=== PATIENT | female | born 1970 | race Caucasian/White ===

== ENCOUNTER 2019-06-16 11:54 | Observation (INO) | payer BC, SELFPAY ==
[2019-06-16] VITALS (12 sets, daily range): BP systolic 106–134; BP diastolic 53–78; PULSE 37–74; RESP 10–18; TEMP 36.5–36.9; O2SAT 96–100; BMI 35.9; BMI 34.8
--- NOTE | 2019-06-16 12:01 | RAD_ITS ---
STUDY: X-RAY CHEST REASON FOR EXAM: Female, 48 years old. Chest pain TECHNIQUE: AP COMPARISON: None. FINDINGS: EKG leads project over the chest. Oval shaped nodule projects just above the left hilum. There is no demonstrated pleural abnormality. Normal size heart. Normal mediastinum and debby. Normal visualized pulmonary arteries. Normal visualized aortic arch and descending thoracic aorta. No acute bony process. There is no demonstrated abnormality of the visualized soft tissue structures of the upper abdomen. RAD/Chest 1 View (Portable) IMPRESSION: No acute cardiopulmonary process. 1.5 cm left suprahilar nodular density could represent a nodule vs. vessel on end. Chest PA and lateral xray or chest CT suggested. Electronically Signed: Cade Almaguer MD (Brooks) at 12:41 EDT , Service support ,
--- NOTE | 2019-06-16 12:01 | EKG12_ITS ---
Test Reason : SYNCOPE Blood Pressure : / mmHG Vent. Rate : 038 BPM Atrial Rate : 038 BPM P-R Int : 148 ms QRS Dur : 084 ms QT Int : 472 ms P-R-T Axes : 043 052 066 degrees QTc Int : 375 ms Marked sinus bradycardia Abnormal ECG Confirmed by RAFAL NICOLE, JACKSON ([id number]), health editor ELAINE HSU ([id number] on 06/19/2019 8:37:47 AM Referred By: OSCAR Confirmed By:JACKSON LYLES MD
--- NOTE | 2019-06-16 12:16 | ED.DCSUM_ITS ---
- ER Visit Summary Date of Service: 06/16/19 Chief Complaint: Passed out History of Present Illness: The patient is a 48 F history of prior vasovagal syncope. Migraine headaches and myopathy on Topamax and recently started on Antivert. Patient's passed out now 3 times in the last 2 to 3 weeks. Was seen in [facility] ER a week or 2 ago. They went to admit her at that time but she signed out AGAINST MEDICAL ADVICE. She denies recently being ill. She has no known cardiac disease. Is on no rhythm or blood pressure medications reportedly. Today was seated in taoism by her son. [place] lightheaded and your heart rate was low and passed out for reportedly 2 to 3 minutes or longer. She was seated at the time. Denies any injuries. She denies any vomiting or diarrhea. No melena. No fever. No chest pain. He was brought in by squad. She was given aspirin per the squad. Physical Examination: Middle-aged female. Currently blood pressure 134/66 with a heart rate of 37. Her pulse ox 100% on room air. HEENT exam unremarkable. Pupils are unreactive light. No signs of trauma to her face or head. C-spine nontender. Trachea midline. No thyromegaly. No lymphadenopathy. Lungs clear to auscultation bilaterally. Heart regular rhythm rate about 37-second sinus bradycardia. No murmur appreciated. Chest wall nontender. Abdomen soft nontender. Normal bowel sounds no peritoneal signs. Remedies moves all 4. No edema. Nontender. Normal range of motion. Normal environmental maintenance worker strength and dorsi and plantar flexion. Skin unremarkable. Neurologically she is awake and alert with no focal motor deficits. Test Results: EKG shows a sinus bradycardia rate of 37 with no obvious signs of any type of block. No DE or ischemia. Portable single view chest x-ray shows no acute abnormality. Normal cardiac silhouette. No acute benign. No CHF. No effusions. Lung young are unremarkable. CBC normal white count 8. Hemoglobin 13. Electrolytes normal normal creatinine and gap. Normal potassium. Troponin normal. TSH is pending. Emergency Department Course and Treatment: Patient remained on surveillance system monitor. We have atropine at bedside but currently is not needed due to her stable blood pressure. She will undergo cardiac work-up. Most likely will need to be admitted here or another facility for further cardiac evaluation. Treatment Plan: Repeat exam the patient is doing well. Her heart rates in the high 30s but her pressure is 130s over 60s and 70s. I spoke to the railway signal electrician internal controls consultant today and he is comfortable with her being admitted here. I will speak to the hospitalist about the admission to the telemetry unit. Disposition: admission Impression: Acute sinus bradycardia heart rate in the 30s. Acute syncope suspect secondary to sinus bradycardia This note was generated with [employer] dictation software. It may contain incorrect words, spelling, and punctuation that were not noted in review of the chart prior to signing ED Disposition - Plan for ED Patient: Referrals: [facility] Doctor,Out of [Primary Care Provider] -
[2019-06-16 12:22] LABS: Absolute Lymphocyte Count 2.54 X10^3/uL (0.83-4.51); Absolute Neutrophil Count 4.7 X10^3/uL (2.0-7.7); Basophil# 0.07 X10^3/uL; Basophil% 0.9 % (0-1); Eosinophil# 0.17 X10^3/uL; Eosinophils% 2.1 % (0-5); Hematocrit 42.2 % (37-47); Hemoglobin 13.9 g/dL (12.0-15.0); Lymphocyte # 2.54 X10^3/ul (4.0); Lymphocyte % 31.9 % (19-41); Mean Corp Hgb Conc 32.9 g/dL (32-36); Mean Corpuscular Hgb 30.2 pg (27.0-32.0); Mean Corpuscular Volume 91.7 fL (81-99); Mean Platelet Vol. 8.9 fl (6.2-12.0); Monocyte# 0.48 X10^3/uL; NRBC Flagged by Analyzer 0 % (0-5); Neutrophil # 4.65 X10^3/uL (2.7-7.7); Neutrophil % 58.6 % (47-70); Platelet Count 258 K/mm3 (150-450); RBC Distribution Width CV 13.1 % (11.6-14.6); RBC Distribution Width SD 44.4 fl (35.1-43.9)
[2019-06-16 12:30] LABS: Anion Gap 7 (5-15); BUN 14 mg/dL (7-18); BUN/Creat Ratio 16.5 RATIO (10-20); Calcium,Total 8.7 mg/dL (8.5-10.1); Chloride 111 mmol/L (98-107); Creatinine, Serum 0.85 mg/dL (0.55-1.02); EST Glomerular Filtration Rate 76 mL/min (>60); Est Glom Filt Rate - Afr Amer 92 mL/min (>60); Estimated Creatinine Clearance 67.68 ml/min; Glucose 92 mg/dL (74-106); Potassium 3.8 mmol/L (3.5-5.1); Sodium Level 142 mmol/L (136-145)
[2019-06-16] MEDS: 0.9% Normal Saline 1,000 ML 999 ML IV (12:44)
[2019-06-16 12:50] LABS: Thyroid Stim Hormone (TSH) 1.56 uIU/mL (0.358-3.74)
--- NOTE | 2019-06-16 12:50 | HP.PCM_ITS ---
Problem List (1) Syncope Status: Acute (2) Bradycardia Status: Acute (3) Chronic pain Status: Chronic (4) Migraine Status: Chronic (5) BMI 36.0-36.9,adult Status: Chronic History of Present Illness Date of Admission: 06/16/19 Chief Complaint: PASSED OUT The patient is a 48 year old F with past medical history single for chronic pain syndrome, chronic migraine who was brought to the emergency department after passing out was a change. Patient did complain of feeling lightheaded prior to passing out. She report having passed out a couple of times over the past couple of months. In the emergency department patient was found to be bradycardic with heart rates in the high 30s. She however did not have any blocks. The energy broker metal control coordinator was notified who recommended for patient to be admitted to a monitored bed for subsequent management. Past Medical History Past Medical History (Chronic Problems): Chronic Problems Chronic pain (Chronic) Migraine (Chronic) BMI 36.0-36.9,adult (Chronic) Allergies No Known Allergies Allergy (Verified 06/16/19 12:16) Home Medications: Ambulatory Orders Medication Instructions Recorded Hydrocodone/Acetaminophen 1 tab PO TID PRN 06/16/19 [Hydrocodone-Acetamin 5-325 mg] Topiramate 25 mg PO TID 06/16/19 Smoking Status: Former smoker - *Family History Maternal History Items: Heart Disease - Review of Systems Constitutional: Denies: Anorexia, Chills, Fever, Night Sweats, Weight Change HEENT: Denies: Head Aches, Sinus Congestion, Sinus Drainage Cardiovascular: Reports: Light Headedness, Syncope. Denies: Chest Pain, Orthopnea, Palpitations, Paroxysmal Noc. Dyspnea Respiratory: Denies: Cough, Shortness of breath at rest, Shortness of breath upon exertion, Sputum production Gastrointestinal: Denies: Abdominal Pain, Hematemesis, Hematochezia, Nausea, Melena, Vomiting Genitourinary: Denies: Dysuria, Frequency, Hematuria, Urgency Musculoskeletal: Denies: Joint Pain, Joint Tenderness Skin: Denies: Rash Neurological: Denies: Focal weakness, Numbness, Tingling Psychiatric: Denies: Homicidal Ideations, Suicidal Ideations Hematologic/ Lymphatic: Denies: Easy Bruising, Easy Bleeding VTE Information - Inpt Only VTE Present on Admission: No VTE Mechan Device Prophylaxis: None VTE Pharm Prophylaxis ordered?: Yes Patient Problems: Active and Suspected Problems Syncope (Acute) Bradycardia (Acute) Objective: GENERAL: cooperative HEENT: Atraumatic; moist oral mucosa EYES; Anicteric, Normal Conjunctiva NECK; supple, normal thyroid, RESPIRATORY: Diminished to auscultation CARDIOVASCULAR: Regular S1 S2, Bradycardic GI: soft, non-tender, normoactive bowel sounds, : No Renal angle tenderness; EXTREMITIES: No edema, no clubbing, no cyanosis. MUSCULOSKELETAL: No Joint Tenderness; NEURO: Awake; no lateralizing signs. SKIN: No Rash PSYCH; Normal affect - Physical Exam Vital Signs Temp Pulse Resp BP Pulse Ox 98.1 F 37 L 18 134/66 H 100 06/16/19 11:55 06/16/19 12:09 06/16/19 12:09 06/16/19 11:55 06/16/19 12:09 Oxygen Flow Rate (L/min) 2 Oxygen Delivery Method Nasal Cannula Weight: 92.1 kg Body Mass Index (BMI) 35.9 Laboratory Tests Past 24 Hrs 06/16/19 06/16/19 06/16/19 12:05 12:05 12:05 WBC 8.0 RBC 4.60 Hgb 13.9 Hct 42.2 MCV 91.7 MCH 30.2 MCHC 32.9 RDW Std Deviation 44.4 H RDW Coeff of Freya 13.1 Plt Count 258 MPV 8.9 Immature Gran % (Auto) 0.500 Neut % (Auto) 58.6 Lymph % (Auto) 31.9 [place] % (Auto) 6.0 Eos % (Auto) 2.1 Baso % (Auto) 0.9 Absolute Neuts (auto) 4.7 Absolute Lymphs (auto) 2.54 Nucleated RBC % 0 Sodium 142 Potassium 3.8 Chloride 111 H Carbon Dioxide 24.0 Anion Gap 7 BUN 14 Creatinine 0.85 Estim Creat Clear Calc 67.68 Est GFR (MDRD) Af Amer 92 Est GFR (MDRD) Non-Af 76 BUN/Creatinine Ratio 16.5 Glucose 92 Calcium 8.7 Troponin I < 0.015 TSH 1.56 Assessment/Plan All Active Problems Syncope (Acute) Bradycardia (Acute) Patient is a 48-year-old lady admitted following a single change. 1. Syncope ~secondary to symptomatic severe sinus bradycardia. Patient has been admitted to a monitored bed for subsequent monitoring. As part of her management ordered serial cardiac enzymes TSH and 2D echo the energy broker on-call Dr. Szymanski was informed prior to patient being admitted consult placed to him 2. Severe sinus bradycardia ~management as discussed above 3. Chronic pain syndrome ~patient is followed by pain management she is on hydrocodone at home 4. Chronic migraine ~currently not having an acute migrainous attack patient is on Toprol we did continue 5. Obesity with BMI of 36 ~weight loss advised 6. DVT prophylaxis ~ on enoxaparin Code Visit OBSV E&M: [id number] Initial observation care L3
[2019-06-16] MEDS: Topiramate 25 MG Tablet PO ×2 (14:59→21:14)
--- NOTE | 2019-06-16 16:56 | PCM.CONS.C ---
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 Patient did complain of feeling lightheaded prior to passing out. Patient states that she had finished singing and she went to sit down and shortly after that she passed out. She report having passed out a couple of times over the past couple of months. In the emergency department patient was found to be bradycardic with heart rates in the high 30s. She however did not have any blocks. States that sometimes when she gets up from a sitting or lying position she feels lightheaded. There have been times when she just could not sit up and had to lie down because of the lightheadedness. There have been other times when she has been standing for a long time and then she felt very lightheaded at work. Patient states that she had an echocardiogram done recently that revealed a PFO. She was supposed to get a stress test and an event monitor. Due to the PFO and dizziness she was also supposed to get an MRI to see if she has had strokes in the posterior circulation. Review of systems: All systems reviewed. All else is negative except that in the HPI. [] Past Medical History Allergies/Adverse Reactions: Allergies No Known Allergies Allergy (Verified 06/16/19 12:16) Home Medications: Ambulatory Orders Medication Instructions Recorded Aspirin 325 mg PO DAILY@0800 06/16/19 Hydrocodone/Acetaminophen 1 tab PO TID PRN 06/16/19 [Hydrocodone-Acetamin 5-325 mg] Meclizine HCl [Antivert] 25 mg PO TID PRN PRN 06/16/19 Topiramate 25 mg PO TID 06/16/19 Past Medical History (Chronic Problems): Chronic Problems Chronic pain (Chronic) Migraine (Chronic) BMI 36.0-36.9,adult (Chronic) - *Family History Maternal History Items: Heart Disease - Smoking Status: Former smoker Objective: Vital Signs Temp Pulse Resp BP Pulse Ox 97.7 F L 43 L 16 131/67 H 96 06/16/19 13:33 06/16/19 14:45 06/16/19 13:33 06/16/19 13:33 06/16/19 16:47 Oxygen Flow Rate (L/min) 2 Oxygen Delivery Method Room Air Weight: 196 lb 6.91 oz Body Mass Index (BMI) 34.8 Intake and Output for Last 24 Hours 06/14/19 06/15/19 06/16/19 23:59 23:59 23:59 Intake Total 1000 / 1000 Balance 1000 / 1000 General: Awake, Alert, Oriented x 3 HEENT: PERRL, EOMI, Sclera Non Icteric Neck: Supple, Good ROM, No Lymph Node Enlargement Lungs: Clear to auscultation Cardiovascular: Regular Rhythm, Normal S1, Normal S2, No Murmurs, No Rubs, No Gallops Abdomen: Soft Extremities: No edema Skin: No Rashes Psych/Mental Status: Appropriate 06/16/19 12:05: WBC 8.0, RBC 4.60, Hgb 13.9, Hct 42.2, MCV 91.7, MCH 30.2, MCHC 32.9, Plt Count 258, MPV 8.9, Immature Gran % (Auto) 0.500, Neut % (Auto) 58.6, Lymph % (Auto) 31.9, [place] % (Auto) 6.0, Eos % (Auto) 2.1, Baso % (Auto) 0.9, Absolute Neuts (auto) 4.7, Nucleated RBC % 0 06/16/19 12:05: Sodium 142, Potassium 3.8, Chloride 111 H, Carbon Dioxide 24.0, Anion Gap 7, BUN 14, Creatinine 0.85, Est GFR (MDRD) Af Amer 92, Est GFR (MDRD) Non-Af 76, BUN/Creatinine Ratio 16.5, Glucose 92, Calcium 8.7, Troponin I < 0.015 06/16/19 15:33: Troponin I < 0.015 Rhythm: EKG: ECHO: Stress Test: Cardiac Cath: PCI: CT Surgery: Holter monitor: EPS: PPM: CXR: Chest CT Scan: Assessment/Plan 1. Syncope: This appears to be vasovagal. By history she could have an orthostatic component to it as well. Advised patient to stay well hydrated. Please check for orthostatic drop in blood pressure. Due to her significant sinus bradycardia we will try walking her on a treadmill to see if her heart rate goes up with exercise to rule out chronotropic incompetence. We should also try to get records of outside echocardiogram. Consider neurology consult or MRI as this was also being considered anyway as an outpatient according to the patient. We could also consider fludrocortisone or Midodrine if required.
[2019-06-16] MEDS: oxyCODONE 5 MG Tablet PO (19:41)
[2019-06-17] VITALS (10 sets, daily range): BP systolic 99–132; BP diastolic 48–82; PULSE 42–69; RESP 14–16; TEMP 36.6–36.9; O2SAT 95–97
[2019-06-17] MEDS: Topiramate 25 MG Tablet PO ×3 (05:01→21:32)
--- NOTE | 2019-06-17 05:55 | EKG12_ITS ---
Test Reason : AM EKG Blood Pressure : / mmHG Vent. Rate : 039 BPM Atrial Rate : 039 BPM P-R Int : 162 ms QRS Dur : 090 ms QT Int : 478 ms P-R-T Axes : 037 030 042 degrees QTc Int : 384 ms Marked sinus bradycardia Low voltage QRS Abnormal ECG When compared with ECG of 16-JUN-2019 12:06, MANUAL COMPARISON REQUIRED, DATA IS UNCONFIRMED Confirmed by ELIE PARKS ([id number]), photography editor ELAINE HSU ([id number]) on 06/19/2019 10:48:11 AM Referred By: YUE Confirmed By:ELIE PARKS
[2019-06-17 06:20] LABS: Absolute Lymphocyte Count 3.18 X10^3/uL (0.83-4.51); Absolute Neutrophil Count 3.2 X10^3/uL (2.0-7.7); Basophil# 0.08 X10^3/uL; Basophil% 1.1 % (0-1); Eosinophil# 0.25 X10^3/uL; Eosinophils% 3.5 % (0-5); Hematocrit 43.4 % (37-47); Hemoglobin 14.2 g/dL (12.0-15.0); Lymphocyte # 3.18 X10^3/ul (4.0); Mean Corp Hgb Conc 32.7 g/dL (32-36); Mean Corpuscular Hgb 29.8 pg (27.0-32.0); Mean Platelet Vol. 9.2 fl (6.2-12.0); Monocyte# 0.53 X10^3/uL; Monocyte% 7.3 % (0-10); NRBC Flagged by Analyzer 0 % (0-5); Neutrophil # 3.17 X10^3/uL (2.7-7.7); Neutrophil % 43.8 % (47-70); Platelet Count 288 K/mm3 (150-450); RBC Distribution Width CV 13.4 % (11.6-14.6); RBC Distribution Width SD 45.3 fl (35.1-43.9); Red Blood Count 4.77 M/mm3 (4.2-5.4); White Blood Count 7.2 K/mm3 (4.4-11.0)
[2019-06-17 06:39] LABS: Anion Gap 8 (5-15); BUN 15 mg/dL (7-18); BUN/Creat Ratio 18.8 RATIO (10-20); Calcium,Total 8.7 mg/dL (8.5-10.1); Chloride 113 mmol/L (98-107); EST Glomerular Filtration Rate 82 mL/min (>60); Est Glom Filt Rate - Afr Amer 99 mL/min (>60); Estimated Creatinine Clearance 68.76 ml/min; Glucose 89 mg/dL (74-106); Magnesium 2.3 mg/dL (1.6-2.6); Sodium Level 143 mmol/L (136-145)
[2019-06-17] MEDS: Acetaminophen 325 MG Tablet 650 MG PO (09:17)
[2019-06-17] MEDS: oxyCODONE 5 MG Tablet PO (13:32)
--- NOTE | 2019-06-17 16:35 | PN_ITS ---
Patient Problems: Active and Suspected Problems Syncope (Acute) Bradycardia (Acute) Subjective: Had a vagal episode while on the treadmill for the stress test and did become bradycardic. Was caught before she actually was able to collide with anything. Currently just feels tired. Vitals/I&O's: Vital Signs Temp Pulse Resp BP Pulse Ox 36.7 C 47 L 16 112/55 L 97 06/17/19 13:25 06/17/19 14:57 06/17/19 13:25 06/17/19 13:25 06/17/19 13:25 Oxygen Flow Rate (L/min) 2 Oxygen Delivery Method Room Air Weight: 89.1 kg Body Mass Index (BMI) 34.8 Orthostatic Vital Signs Start: 06/16/19 18:20 Freq: q24h Status: Active Protocol: Activity Type Activity Date Activity User E-Sign Co-Sign Detail Recorded Client Recorded Date Recorded By Document 06/17/19 04:40 CS [id number] 06/17/19 05:42 CS 06/17/19 04:40 Orthostatic Vitals Standing -Blood Pressure (90/60-120/80) 120/64 -Extremity Use Left Arm -Pulse Rate (60-100) 42 L Sitting -Blood Pressure (90/60-120/80) 113/57 L -Extremity Use Left Arm -Pulse Rate (60-100) 46 L Lying -Blood Pressure (90/60-120/80) 132/82 H -Extremity Use Left Arm -Pulse Rate (60-100) 56 L Intake and Output for Last 24 Hours 06/15/19 06/16/19 06/17/19 23:59 23:59 23:59 Intake Total 1440 / 1440 240 / 240 Output Total 400 / 400 0 / 0 Balance 1040 / 1040 240 / 240 General: Alert, No apparent distress HEENT: Atraumatic, Normocephalic Oral: Moist Mucosa, No Gingival or Mucosal Lesions/ Ulcerations Neck: No Nodes, Thyroid Normal Size and Texture Lungs: Clear to auscultation, Normal air movement, No rhonchi, No wheeze, No rales Cardiovascular: Regular rate, Regular Rhythm, Normal S1, Normal S2 Abdomen: Bowel Sounds Present, Soft, Non Tender, Non-Distended Musculoskeletal: Arthritic Changes, Tenderness Neurological: Muscle tone normal Psych/Mental Status: Normal Affect, Appropriate Laboratory Results 06/16/19 15:33: Troponin I < 0.015 06/16/19 18:20: Troponin I < 0.015 06/17/19 05:17: Sodium 143, Potassium 4.0, Chloride 113 H, Carbon Dioxide 22.0, Anion Gap 8, BUN 15, Creatinine 0.80, Estim Creat Clear Calc 68.76, Est GFR (MDRD) Af Amer 99, Est GFR (MDRD) Non-Af 82, BUN/Creatinine Ratio 18.8, Glucose 89, Calcium 8.7, Magnesium 2.3 06/17/19 05:17: WBC 7.2, RBC 4.77, Hgb 14.2, Hct 43.4, MCV 91.0, MCH 29.8, MCHC 32.7, RDW Std Deviation 45.3 H, RDW Coeff of Freya 13.4, Plt Count 288, MPV 9.2, Immature Gran % (Auto) 0.300, Neut % (Auto) 43.8 L, Lymph % (Auto) 44.0 H, [place] % (Auto) 7.3, Eos % (Auto) 3.5, Baso % (Auto) 1.1 H, Absolute Neuts (auto) 3.2, Absolute Lymphs (auto) 3.18, Nucleated RBC % 0 Current Medications Acetaminophen (Tylenol) 650 mg PO Q6H PRN PRN PRN Reason: Pain Score 1-3/Temp > 100.7 F Last Admin: 06/17/19 09:17 Dose: 650 mg Documented by: Al Hydroxide/Mg Hydroxide (Mylanta Ii) 30 ml PO Q6H PRN PRN PRN Reason: Gastric Burning Albuterol Sulfate (Ventolin Aerosols) 2.5 mg INHALATION Q2H PRN PRN PRN Reason: SOB/Wheezing Enoxaparin Sodium (Lovenox) 40 mg SC DAILY@1000 JOSE Last Admin: 06/17/19 09:14 Dose: Not Given Documented by: Sodium Chloride () 250 mls @ 15 mls/hr IV .[id number] PRN PRN Reason: SALINE FLUSH Magnesium Hydroxide (Milk Of Magnesia) 30 ml PO DAILY PRN PRN PRN Reason: Constipation Melatonin (Melatonin) 3 mg PO QHS PRN PRN PRN Reason: INSOMNIA Nitroglycerin (Nitrostat) 0.4 mg SUBLINGUAL Q5M PRN PRN Reason: CARDIAC/CHEST PAIN Ondansetron HCl (Zofran) 4 mg IV Q8H PRN PRN PRN Reason: NAUSEA/VOMITING Oxycodone HCl (Oxyir) 5 mg PO Q4H PRN PRN PRN Reason: Pain Score 4-5/10 Last Admin: 06/17/19 13:32 Dose: 5 mg Documented by: Oxycodone HCl (Oxyir) 10 mg PO Q4H PRN PRN PRN Reason: Pain Score 6-10/10 Sodium Chloride () 5 - 15 ml IV UD PRN PRN Reason: SALINE FLUSH Topiramate (Topamax) 25 mg PO TID JOSE Last Admin: 06/17/19 13:29 Dose: 25 mg Documented by: STROKE Vital Signs/Narrative: Vital Signs Temp Pulse Resp BP Pulse Ox 06/17/19 14:57 47 L 06/17/19 13:25 36.7 C 42 L 16 112/55 L 97 Medical Necessity - Tobacco Use Smoking Status: Former smoker Assessment/Plan All Active Problems Syncope (Acute) Bradycardia (Acute) 1. syncope * appears vasovagal 2. bradycardia * ongoing * no potentiating medications * await further card recommendations. 3. VTE proph: LMWH. Code Visit OBSV E&M: [id number] Subsequent observation care L2
--- NOTE | 2019-06-17 17:21 | STRESSREP ---
Stress Test Report Date: 06/17/2019 Procedure: Exercise tolerance test Indications: Syncope, sinus bradycardia Consent: Per the patient Procedure: The patient exercised on a Adolfo protocol for 6 minutes and 30 seconds achieving a peak heart rate of 146 bpm (84 % predicted maximal heart rate) with a peak blood pressure 130/70 mmHg and a peak MET capacity of approximately 7.7 mET's. The baseline ECG demonstrated sinus bradycardia. The peak exercise ECG demonstrated sinus tachycardia with no significant ischemic changes. [There were no cardiac dysrhythmias pretest, during exercise, or recovery]. The functional capacity was considered slightly decreased for age The patient had no complaint of chest discomfort during exercise or recovery. However as she was coming off the treadmill patient felt lightheaded and passed out. She was lowered to the floor by the nurse supervising the stress test. Rapid response was called. Patient's blood pressure was 84/40. According to the nurse assisting the patient patient's heart rate was over 100 bpm when she passed out. She never lost her pulse. She was out for about 10 to 15 seconds. Rapid response team documentation does reveal a heart rate of 49 to 52 bpm. Patient did not have any seizure activity, incontinence or postictal confusion. The examination was discontinued secondary to dyspnea. Impression: 1. Technically adequate exercise tolerance test 2. Excess stress test was negative for exercise-induced chest pain or EKG changes of ischemia. Patient had a syncopal episode immediately after exercise. She did not have any significant heart blocks, pauses or tachyarrhythmias. Her blood pressure had dropped from a peak blood pressure of 130/70 to 84/40 and her heart rate came down from a peak of 146 to 52 bpm 2 minutes into recovery. 3. [There were no cardiac dysrhythmias during exercise or recovery] This note was generated with [employer] software. It may contain incorrect words, spelling, and punctuation that were not noted in checking the note before signing.
--- NOTE | 2019-06-17 17:35 | PCM.PN.CARD ---
Subjectve: Patient had a stress test today and her heart rate went up with exercise. However she passed out immediately after the test as she was coming off the treadmill. Her blood pressure had dropped to the 80s systolic. Patient has prior history of orthostatic dizziness as well. Objective: Vital Signs Temp Pulse Resp BP Pulse Ox 98.2 F 61 16 101/54 L 97 06/17/19 17:29 06/17/19 17:29 06/17/19 17:29 06/17/19 17:29 06/17/19 17:29 Oxygen Flow Rate (L/min) 2 Oxygen Delivery Method Room Air Weight: 196 lb 6.91 oz Body Mass Index (BMI) 34.8 Orthostatic Vital Signs Start: 06/16/19 18:20 Freq: q24h Status: Active Protocol: Activity Type Activity Date Activity User E-Sign Co-Sign Detail Recorded Client Recorded Date Recorded By Document 06/17/19 04:40 CS [id number] 06/17/19 05:42 CS 06/17/19 04:40 Orthostatic Vitals Standing -Blood Pressure (90/60-120/80) 120/64 -Extremity Use Left Arm -Pulse Rate (60-100) 42 L Sitting -Blood Pressure (90/60-120/80) 113/57 L -Extremity Use Left Arm -Pulse Rate (60-100) 46 L Lying -Blood Pressure (90/60-120/80) 132/82 H -Extremity Use Left Arm -Pulse Rate (60-100) 56 L Intake and Output for Last 24 Hours 06/15/19 06/16/19 06/17/19 23:59 23:59 23:59 Intake Total 1440 / 1440 240 / 240 Output Total 400 / 400 0 / 0 Balance 1040 / 1040 240 / 240 General: Awake, Alert, Oriented x 3 HEENT: Atraumatic Oral: Moist Mucosa Neck: Supple Lungs: Clear to auscultation Cardiovascular: Regular Rhythm Abdomen: Soft Extremities: No edema Psych/Mental Status: Appropriate 06/16/19 18:20: Troponin I < 0.015 06/17/19 05:17: Sodium 143, Potassium 4.0, Chloride 113 H, Carbon Dioxide 22.0, Anion Gap 8, BUN 15, Creatinine 0.80, Est GFR (MDRD) Af Amer 99, Est GFR (MDRD) Non-Af 82, BUN/Creatinine Ratio 18.8, Glucose 89, Calcium 8.7, Magnesium 2.3 06/17/19 05:17: WBC 7.2, RBC 4.77, Hgb 14.2, Hct 43.4, MCV 91.0, MCH 29.8, MCHC 32.7, Plt Count 288, MPV 9.2, Immature Gran % (Auto) 0.300, Neut % (Auto) 43.8 L, Lymph % (Auto) 44.0 H, [place] % (Auto) 7.3, Eos % (Auto) 3.5, Baso % (Auto) 1.1 H, Absolute Neuts (auto) 3.2, Nucleated RBC % 0 Rhythm: EKG: ECHO: Stress Test: Cardiac Cath: PCI: CT Surgery: Holter monitor: EPS: PPM: CXR: Chest CT Scan: Medical Necessity - Tobacco Use Smoking Status: Former smoker Assessment/Plan 1. Syncope: This appears to be vasovagal. By history she could have an orthostatic component to it as well. Advised patient to stay well hydrated. She had had syncope immediately after walking on the treadmill. Her blood pressure had dropped from 130s at peak exercise to 80s systolic very quickly. We will try Midodrine to see if this helps. We should also try to get records of outside echocardiogram. Consider neurology consult or MRI as this was also being considered anyway as an outpatient according to the patient.
[2019-06-17] MEDS: oxyCODONE 5 MG Tablet 10 MG PO (18:49)
[2019-06-17] MEDS: Midodrine HCl 5 MG Tablet 10 MG PO (21:32)
[2019-06-18] VITALS (12 sets, daily range): BP systolic 107–141; BP diastolic 46–75; PULSE 32–61; RESP 14–18; TEMP 36.4–36.7; O2SAT 94–100
[2019-06-18] MEDS: oxyCODONE 5 MG Tablet 10 MG PO (03:21)
[2019-06-18] MEDS: Midodrine HCl 5 MG Tablet 10 MG PO ×2 (06:12→13:15)
[2019-06-18] MEDS: Topiramate 25 MG Tablet PO ×2 (06:12→13:15)
--- NOTE | 2019-06-18 07:45 | NURSING ---
this RN entered pt room after tele monitor alarmed that pt's HR was 35. this RN attempted to wake pt by speaking her name. pt would not arouse to this RN. this RN started lightly shaking pt and pt finally arose. pt very lethargic and slow to respond. cardiology notified.
[2019-06-18] MEDS: Enoxaparin 40 MG/0.4 ML Syringe SC (09:40)
--- NOTE | 2019-06-18 12:17 | EKG12_ITS ---
Test Reason : CP Blood Pressure : / mmHG Vent. Rate : 036 BPM Atrial Rate : 036 BPM P-R Int : 160 ms QRS Dur : 094 ms QT Int : 486 ms P-R-T Axes : 036 026 039 degrees QTc Int : 375 ms Marked sinus bradycardia Low voltage QRS Abnormal ECG When compared with ECG of 17-JUN-2019 04:29, MANUAL COMPARISON REQUIRED, DATA IS UNCONFIRMED Confirmed by ELIE PARKS ([id number]), brands editor SHAYNE HUTTON ([id number]) on 06/21/2019 10:33:09 AM Referred By: YUE Confirmed By:ELIE PARKS
[2019-06-18] MEDS: Acetaminophen 325 MG Tablet 650 MG PO (12:21)
--- NOTE | 2019-06-18 12:39 | PN_ITS ---
Patient Problems: Active and Suspected Problems Syncope (Acute) Bradycardia (Acute) Subjective: Still feels tired and wiped out. Explained to the patient that given her symptoms, my just some of her medications in regards to make sure there is no other confounding factors. Explained that though unlikely contributing to her bradycardia, narcotics may be complicating the picture by causing her to have increased lethargy and I recommend discontinuing that. Patient is on Hollis at home and she states that she told staff that she was on Hollis at home but they were giving her oxycodone. Patient had 5 and 10's ordered and patient had been taking 10 most recently at 3 AM. I told him to be stopping all narcotics. Patient stated that she is on narcotics due to arthritis and herniated disc in her back. Vitals/I&O's: Vital Signs Temp Pulse Resp BP Pulse Ox 36.6 C 40 L 17 115/58 L 99 06/18/19 12:35 06/18/19 12:35 06/18/19 12:35 06/18/19 12:35 06/18/19 12:35 Oxygen Flow Rate (L/min) 2 Oxygen Delivery Method Room Air Weight: 89.1 kg Body Mass Index (BMI) 34.8 Orthostatic Vital Signs Start: 06/16/19 18:20 Freq: q24h Status: Active Protocol: Activity Type Activity Date Activity User E-Sign Co-Sign Detail Recorded Client Recorded Date Recorded By Document 06/18/19 03:30 [id number] 06/18/19 03:42 CS 06/18/19 03:30 Orthostatic Vitals Standing -Blood Pressure (90/60-120/80) 141/69 H -Extremity Use Left Arm -Pulse Rate (60-100) 56 L Sitting -Blood Pressure (90/60-120/80) 129/75 H -Extremity Use Left Arm -Pulse Rate (60-100) 61 Lying -Blood Pressure (90/60-120/80) 107/55 L -Extremity Use Left Arm -Pulse Rate (60-100) 48 L Intake and Output for Last 24 Hours 06/16/19 06/17/19 06/18/19 23:59 23:59 23:59 Intake Total 1440 / 1440 740 / 740 400 / 400 Output Total 400 / 400 0 / 0 200 / 200 Balance 1040 / 1040 740 / 740 200 / 200 General: Alert, No apparent distress HEENT: Atraumatic, Normocephalic Oral: Moist Mucosa, No Gingival or Mucosal Lesions/ Ulcerations Neck: No Nodes, Thyroid Normal Size and Texture Lungs: Clear to auscultation, Normal air movement, No rhonchi, No wheeze, No rales Cardiovascular: Regular Rhythm, Normal S1, Normal S2, Bradycardic Abdomen: Bowel Sounds Present, Soft, Non Tender, Non-Distended, No Hepato- splenomegaly Extremities: No edema, No Calf Tenderness Skin: No rashes, No breakdown Psych/Mental Status: Appropriate, Flat Affect Current Medications Acetaminophen (Tylenol) 650 mg PO Q6H PRN PRN PRN Reason: Pain Score 1-3/Temp > 100.7 F Last Admin: 06/18/19 12:21 Dose: 650 mg Documented by: Al Hydroxide/Mg Hydroxide (Mylanta Ii) 30 ml PO Q6H PRN PRN PRN Reason: Gastric Burning Albuterol Sulfate (Ventolin Aerosols) 2.5 mg INHALATION Q2H PRN PRN PRN Reason: SOB/Wheezing Enoxaparin Sodium (Lovenox) 40 mg SC DAILY@1000 JOSE Last Admin: 06/18/19 09:40 Dose: 40 mg Documented by: Sodium Chloride () 250 mls @ 15 mls/hr IV .[id number] PRN PRN Reason: SALINE FLUSH Magnesium Hydroxide (Milk Of Magnesia) 30 ml PO DAILY PRN PRN PRN Reason: Constipation Melatonin (Melatonin) 3 mg PO QHS PRN PRN PRN Reason: INSOMNIA Midodrine (Proamatine) 10 mg PO TID [facility] Last Admin: 06/18/19 06:12 Dose: 10 mg Documented by: Nitroglycerin (Nitrostat) 0.4 mg SUBLINGUAL Q5M PRN PRN Reason: CARDIAC/CHEST PAIN Ondansetron HCl (Zofran) 4 mg IV Q8H PRN PRN PRN Reason: NAUSEA/VOMITING Sodium Chloride () 5 - 15 ml IV UD PRN PRN Reason: SALINE FLUSH Topiramate (Topamax) 25 mg PO TID [facility] Last Admin: 06/18/19 06:12 Dose: 25 mg Documented by: STROKE Vital Signs/Narrative: Vital Signs Temp Pulse Resp BP Pulse Ox 06/18/19 12:35 36.6 C 40 L 17 115/58 L 99 06/18/19 10:54 45 L 06/18/19 09:06 36.6 C 42 L 14 140/65 H 98 Medical Necessity - Tobacco Use Smoking Status: Former smoker Assessment/Plan All Active Problems Syncope (Acute) Bradycardia (Acute) 1. syncope * appears vasovagal * started on midodrine 2. bradycardia * ongoing * no potentiating medications * await further card recommendations. * DW Dr. Szymanski, who will discuss with EP to see if she would be a candidate for a pacemaker 3. Chronic pain * reviewed [facility], and shows patient received a 30 day supply of 105 norco (which would be 3.5 tabs/day) * stop narcotics and observe. * Though I doubt has any effect on the bradycardia, but more concerned for the lethargy component * I told the patient that if she starts going through withdrawal, then we will treat her with buprenorphine taper. 4. VTE proph: LMWH. Code Visit OBSV E&M: 60137 Subsequent observation care L2
--- NOTE | 2019-06-18 16:48 | DCINST_ITS ---
- Discharge Diagnoses Current Active Problems: Current Active and Chronic Problems Syncope (Acute) Bradycardia (Acute) Chronic pain (Chronic) Migraine (Chronic) BMI 36.0-36.9,adult (Chronic) You will use the following diet at home:: No restrictions - drink plent of fluids Your food should be the consistency of: Regular Your liquids should be the consistency of: Regular/Thin Allergies/Adverse Reactions: Allergies No Known Allergies Allergy (Verified 06/16/19 12:16) Medications to take at Discharge Aspirin 325 mg PO DAILY@0800 06/16/19 Meclizine HCl [Antivert] 25 mg PO TID PRN PRN 06/16/19 Topiramate 25 mg PO TID 06/16/19 Acetaminophen [Tylenol Tablet] 650 mg PO Q6H PRN PRN tablet 06/18/19 Midodrine HCl [Proamatine] 10 mg PO TID #90 tab 06/18/19 The following prescriptions were given: Midodrine HCl [Proamatine] 10 mg PO TID #90 tab Transmission Status: Pending to [facility] Primary Care Physician: [facility] Doctor,Out of [NON-STAFF] - Test Results: Test results from this visit will be discussed in further detail at your follow- up appointment, if applicable. Please Follow Up With: primary care physician When: 1-2 weeks Proposed Discharge Date: 06/18/19
--- NOTE | 2019-06-18 16:52 | DS.PCM_ITS ---
Discharge Date and Diagnosis - Problem List Patient Problems: Active and Suspected Problems Syncope (Acute) Bradycardia (Acute) Date of Admission: 06/16/19 Date of Discharge: 06/18/19 - Primary Discharge Diagnosis Active and Suspected Problems Syncope (Acute) Bradycardia (Acute) - Secondary Discharge Diagnosis Chronic Problems Chronic pain (Chronic) Migraine (Chronic) BMI 36.0-36.9,adult (Chronic) Hospital Course and Treatment Imaging Results: Clinical Impression(s) from Imaging Studies Chest X-Ray 06/16/19 12:01 IMPRESSION: No acute cardiopulmonary process. 1.5 cm left suprahilar nodular density could represent a nodule vs. vessel on end. Chest PA and lateral xray or chest CT suggested. Electronically Signed: Cade Almaguer MD (Brooks) at 12:41 EDT , Service support , [facility] cardiology Operations: None Procedures: None Summary of Care Provided: The patient is a 48 year old F presents with syncope. Patient was noted to be bradycardic. Cardiology was contacted and patient was evaluated. Patient underwent a stress test and then then had a syncopal episode afterwards. Patient did not have any heart blocks. Blood pressure dropped from 130/70-80 4/40. Heart rate went from 1 46-52. Patient had no dysrhythmias. Patient was monitored in today patient was noted to be lethargic. Approximately 330 this morning, patient had received 10 mg of oxycodone and it was noted to be bradycardic but was sleeping and was difficult to arouse according to nursing. Went to evaluate the patient around 10 AM and patient was awake and alert at that time was still continue to be bradycardic at that time. I did discuss this with cardiology and he was going to look to see about if patient be a candidate for pacemaker. Determined that she was not a candidate. Reevaluate cardiology felt patient was stable for discharge. Patient was started on midodrine to help mitigate some of these syncopal episodes that may be precipitated by orthostatic hypotension and that but otherwise patient is doing well. Patient is on opiates and I does receive prescriptions as outpatient at from providers up in [facility]. Explained the patient that given her symptoms, I think is best that she be discontinued on all narcotics. Patient states that she is on narcotics for chronic pain due to arthritis and herniated disks. Explained the patient that that is not generally ideal choices for her chronic muscular skeletal pain but given the symptoms and her lethargy I have advised complete cessation of narcotics's time. Patient will follow-up with her primary care physician in the next 1 to 2 weeks. [] Patient Problems: Active and Suspected Problems Syncope (Acute) Bradycardia (Acute) - Physical Exam Vital Signs Temp Pulse Resp BP Pulse Ox 36.7 C 54 L 14 107/51 L 100 06/18/19 15:28 06/18/19 15:28 06/18/19 15:28 06/18/19 15:28 06/18/19 15:28 Oxygen Flow Rate (L/min) 2 Oxygen Delivery Method Room Air Weight: 89.1 kg Body Mass Index (BMI) 34.8 Orthostatic Vital Signs Start: 06/16/19 18:20 Freq: q24h Status: Active Protocol: Activity Type Activity Date Activity User E-Sign Co-Sign Detail Recorded Client Recorded Date Recorded By Document 06/18/19 03:30 CS [id number] 06/18/19 03:42 CS 06/18/19 03:30 Orthostatic Vitals Standing -Blood Pressure (90/60-120/80) 141/69 H -Extremity Use Left Arm -Pulse Rate (60-100) 56 L Sitting -Blood Pressure (90/60-120/80) 129/75 H -Extremity Use Left Arm -Pulse Rate (60-100) 61 Lying -Blood Pressure (90/60-120/80) 107/55 L -Extremity Use Left Arm -Pulse Rate (60-100) 48 L Intake and Output for Last 24 Hours 06/16/19 06/17/19 06/18/19 23:59 23:59 23:59 Intake Total 1440 / 1440 740 / 740 400 / 400 Output Total 400 / 400 0 / 0 200 / 200 Balance 1040 / 1040 740 / 740 200 / 200 Discharge Diet: No Restrictions Discharge Activity: Return to Normal Activity Home Medications: Medications to take at Discharge Aspirin 325 mg PO DAILY@0800 06/16/19 Meclizine HCl [Antivert] 25 mg PO TID PRN PRN 06/16/19 Topiramate 25 mg PO TID 06/16/19 Acetaminophen [Tylenol Tablet] 650 mg PO Q6H PRN PRN tablet 06/18/19 Midodrine HCl [Proamatine] 10 mg PO TID #90 tab 06/18/19 Following Prescrptions Were Given to Patient: Midodrine HCl [Proamatine] 10 mg PO TID #90 tab Transmission Status: Pending to [facility] Primary Care Physician: Raheem Doctor,Out of [NON-STAFF] - Please Follow Up With: primary care physician When: 1-2 weeks Disposition: Home Minutes spent on discharge:: 33 Patient Condition:: Fair Medical Necessity - Tobacco Use Smoking Status: Former smoker Meaningful Use Info Meaningful Use Diagnoses (Choose all that apply): None applicable Code Visit OBSV E&M: 29042 Observation care discharge
--- NOTE | 2019-06-18 17:06 | PCM.PN.CARD ---
Subjectve: Patient is having back issues which are limiting her mobility. She still has some dizziness when she ambulates. She had an episode of chest discomfort under the left breast which lasted about 1 minute, unrelated to exertion. Patient feels this is probably musculoskeletal. She did have a stress test yesterday that did not reveal any ischemia. Telemetry has remained unremarkable except for sinus bradycardia. Objective: Vital Signs Temp Pulse Resp BP Pulse Ox 98.1 F 54 L 14 107/51 L 100 06/18/19 15:28 06/18/19 15:28 06/18/19 15:28 06/18/19 15:28 06/18/19 15:28 Oxygen Flow Rate (L/min) 2 Oxygen Delivery Method Room Air Weight: 196 lb 6.91 oz Body Mass Index (BMI) 34.8 Orthostatic Vital Signs Start: 06/16/19 18:20 Freq: q24h Status: Active Protocol: Activity Type Activity Date Activity User E-Sign Co-Sign Detail Recorded Client Recorded Date Recorded By Document 06/18/19 03:30 [id number] 06/18/19 03:42 CS 06/18/19 03:30 Orthostatic Vitals Standing -Blood Pressure (90/60-120/80) 141/69 H -Extremity Use Left Arm -Pulse Rate (60-100) 56 L Sitting -Blood Pressure (90/60-120/80) 129/75 H -Extremity Use Left Arm -Pulse Rate (60-100) 61 Lying -Blood Pressure (90/60-120/80) 107/55 L -Extremity Use Left Arm -Pulse Rate (60-100) 48 L Intake and Output for Last 24 Hours 06/16/19 06/17/19 06/18/19 23:59 23:59 23:59 Intake Total 1440 / 1440 740 / 740 400 / 400 Output Total 400 / 400 0 / 0 200 / 200 Balance 1040 / 1040 740 / 740 200 / 200 General: Awake, Alert, Oriented x 3 HEENT: Atraumatic Oral: Moist Mucosa Neck: Supple Lungs: Clear to auscultation Cardiovascular: Regular Rhythm Abdomen: Soft Extremities: No edema Skin: No Rashes Psych/Mental Status: Appropriate Rhythm: EKG: ECHO: Stress Test: Cardiac Cath: PCI: CT Surgery: Holter monitor: EPS: PPM: CXR: Chest CT Scan: Medical Necessity - Tobacco Use Smoking Status: Former smoker Assessment/Plan 1. Syncope: This appears to be vasovagal. By history she could have an orthostatic component to it as well. Advised patient to stay well hydrated. She had had syncope immediately after walking on the treadmill. Her blood pressure had dropped from 130s at peak exercise to 80s systolic very quickly. Continue Midodrine at this time. I did mention to the patient that another approach would be to decrease the Midodrine to 5 mg p.o. 3 times daily and add Florinef. Also advised the patient to use compression stockings, stay well-hydrated and to lie down immediately if she has prodromal symptoms. Patient was inquiring about going home. I advised the patient to try to ambulate and if she feels steady enough I think it will be reasonable to discharge her home. She was inquiring about event monitoring as this was recommended to her by an outside auto finance sales rep. I mentioned to her that she can get this as an outpatient. I did mention to her that with over 48 hours of monitoring her in the hospital she did not have any significant pauses or tachyarrhythmias. She can follow-up with us or her other auto finance sales rep as an outpatient.
== END 2019-06-18 16:51 | disposition home or self-care (01) ==
LOC: ED 12:50 → PCU 12:58
PROVIDERS: Admitting Provider Internal Medicine; Emergency Provider Emergency Medicine; Family Provider Family Medicine
DX: R55 Syncope and collapse (principal); R00.1 Bradycardia, unspecified; R07.89 Other chest pain; R42 Dizziness and giddiness; G43.909 Migraine, unspecified, not intractable, without status migrainosus; G89.4 Chronic pain syndrome; E66.9 Obesity, unspecified; Z79.899 Other long term (current) drug therapy; Z79.82 Long term (current) use of aspirin; Z87.891 Personal history of nicotine dependence; Z68.36 Body mass index [BMI] 36.0-36.9, adult; Z71.3 Dietary counseling and surveillance
CPT/HCPCS: 36415; 71045; 80048; 83735; 84443; 84484; 85025; 93005; 93017; 96360; 96372; 99218; 99251; 99285; J7040; A4216; G0378; G0463